=== PATIENT | female | born 1990 | race Caucasian/White ===

== ENCOUNTER 2025-08-01 18:55 | Emergency (ER) | payer OTHER ==
[2025-08-01] MEDS ORDERED: Acetaminophen/HYDROcodone 325-5 MG Tab PO ONE (18:56)
[2025-08-01 19:33] LABS: BASOPHILS ABSOLUTE AUTO 0.0 x10-3/uL (0.0-0.1); BASOPHILS PERCENT AUTO 0.7 % (0.2-1.5); EOSINOPHILS ABSOLUTE AUTO 0.2 x10-3/uL (0.0-0.8); EOSINOPHILS PERCENT AUTO 2.2 % (0.6-8.1); LYMPHOCYTES ABSOLUTE AUTO 1.5 x10-3/uL (1.0-4.4); LYMPHOCYTES PERCENT AUTO 21.7 % (18.4-52.1); MEAN PLATELET VOLUME 8.6 fL (7.1-12.4); MONOCYTES ABSOLUTE AUTO 0.2 x10-3/uL (0.3-1.0); MONOCYTES PERCENT AUTO 3.5 % (4.4-15.7); NEUTROPHILS ABSOLUTE AUTO 5.0 x10-3/uL (1.5-6.3); NEUTROPHILS PERCENT AUTO 71.9 % (30.8-76.2); PLATELET COUNT,PLT 307 x10(3)uL (151-488); RED BLOOD CELL COUNT 4.35 x10(6)uL (3.60-5.20); RED CELL DISTRIBUTION WIDTH 13.1 % (12.3-16.5); WHITE BLOOD CELL COUNT,WBC 7.0 x10-3/uL (3.0-10.3)
== END 2025-08-01 19:53 | disposition home or self-care (01) ==
LOC: FB.ED 18:55
DX: M25.511 Pain in right shoulder (principal); Z88.5 Allergy status to narcotic agent
CPT/HCPCS: 36415; 71046; 73030; 85025; 86140; 99283; A9270